=== PATIENT | female | born 1960 | race Caucasian/White ===

== ENCOUNTER 2024-07-27 08:28 | Emergency (ER) | payer MEDICAID ==
[~2024-07-27] VITALS: Ht 167.6 cm; Wt 75.0 kg
[2024-07-27 08:37] VITALS: O2SAT 98
[2024-07-27 08:54] LABS: BASOPHILS % 0.7 % (0.0-2.0); EOSINOPHILS % 1.5 % (0.0-5.0); HEMATOCRIT. 42.3 % (36.0-48.0); HEMOGLOBIN. 13.8 g/dL (12.0-16.0); LYMPHOCYTES % 15.7 % (20.0-50.0); MEAN CORPUSCULAR HGB CONC 32.7 g/dL (31.0-37.0); MEAN CORPUSCULAR VOLUME 88.7 fL (81.0-99.0); MEAN PLATELET VOLUME 8.9 fl (7.4-10.4); MONOCYTES % 5.9 % (2.0-8.0); NEUTROPHILS % 76.2 % (40.0-76.0); PLATELET 280 x1000/uL (130-400); RED BLOOD CELL COUNT 4.77 mill/uL (4.2-5.4); RED CELL DISTRIBUTION WIDTH 13.5 % (11.6-14.6); WHITE BLOOD COUNT 8.7 x1000/uL (4.5-11.0)
[2024-07-27 09:07] LABS: CARBON DIOXIDE 27 mEq/L (21-32); CHLORIDE 107 mEq/L (98-107); POTASSIUM 3.6 mEq/L (3.5-5.1); SODIUM 141 mEq/L (136-145)
[2024-07-27 09:12] LABS: CREATININE 0.7 mg/dL (0.6-1.0); GLUCOSE 108 mg/dL (70-105)
[2024-07-27 09:13] LABS: UREA NITROGEN BLOOD 15 mg/dL (9-23)
[2024-07-27 09:14] LABS: ALANINE AMINOTRANSFERASE 26 IU/L (10-49); ASPARTATE AMINOTRANSFERASE 24 IU/L (<34)
[2024-07-27 09:15] LABS: BILIRUBIN DIRECT 0.1 mg/dL (<=3.0); BILIRUBIN TOTAL 0.5 mg/dL (0.1-1.0); PROTEIN TOTAL 7.7 g/dL (6.0-8.3)
[2024-07-27 09:43] LABS: CLARITY URINE CLEAR (CLEAR); COLOR URINE YELLOW (YELLOW); GLUCOSE URINE NEGATIVE (NEGATIVE); KETONES URINE NEGATIVE (NEGATIVE); LEUKOCYTE ESTERASE URINE NEGATIVE (NEGATIVE); NITRITE URINE NEGATIVE (NEGATIVE); OCCULT BLOOD URINE NEGATIVE (NEGATIVE); PROTEIN URINE TRACE (NEGATIVE); UROBILINOGEN URINE 0.2 E.U./dL (0.2-1.0)
[2024-07-27] MEDS ORDERED: MECLIZINE 25MG TABLET PO ONE (10:15)
[2024-07-27 10:19] LABS: TROPONIN I HIGH SENSITIVITY 8 ng/L (3.0-34)
[2024-07-27 10:24] LABS: BACTERIA URINE 1+; RBC URINE 0-2 /hpf (0-2); SQUAMOUS EPITHELIAL CELL URINE 1+ /lpf (RARE/1+); YEAST URINE NONE SEEN
[2024-07-27 11:52] VITALS: BP 150/89; PULSE 71; RESP 18; TEMP 36.72516; O2SAT 98
[2024-07-27] MEDS ORDERED: MECL-299 MT (13:49)
[2024-07-27] MEDS: ONDANSETRON 4MG/5ML UDC PO ONE (13:54)
[2024-07-27] MEDS: MECLIZINE 12.5MG TABLET PO NR (13:54)
== END 2024-07-27 14:54 | disposition home or self-care (01) ==
LOC: ER 08:28
DX: R11.2 Nausea with vomiting, unspecified (principal); I10 Essential (primary) hypertension; Z85.42 Personal history of malignant neoplasm of other parts of uterus; Z90.710 Acquired absence of both cervix and uterus
CPT/HCPCS: 99285; 70450; 71045; 80076; 80048; 81003; 83880; 83690; 85025; 84484; 36415; 93005; J8597